=== PATIENT | female | born 1985 | race Caucasian/White ===

== ENCOUNTER 2018-05-12 03:54 | Inpatient (IN) | payer OTHER ==
[2018-05-12] MEDS ORDERED: BUTORPHANOL 1 MG/ML INJ IV PRN (04:54)
[2018-05-12] MEDS ORDERED: MEPERIDINE HCL 25 MG/0.5 ML IV PRN (04:54)
[2018-05-12] MEDS ORDERED: METHYLERGONOVINE 0.2MG/ML AMP IM PRN (04:54)
[2018-05-12] MEDS ORDERED: MIDAZOLAM HCL 2 MG/2 ML INJ IV PRN (04:54)
[2018-05-12] MEDS ORDERED: CARBOPROST TROME 250 MCG/ML IM PRN (04:54)
[2018-05-12] MEDS ORDERED: Ringers Lactate 1,000 ML IV PRN (04:54)
[2018-05-12] MEDS ORDERED: PROMETHAZINE 25 MG/ML VIAL IM PRN (04:54)
[2018-05-12] MEDS ORDERED: Ringers Lactate 1,000 ML IV SCH (05:00)
[2018-05-12] MEDS ORDERED: OXYTOCIN/LR 20 UNIT/1,000 ML BAG IV SCH ×2 (05:30→10:00)
[2018-05-12 05:34] LABS: RPR Titer ND
[2018-05-12 05:40] LABS: Urine Appearance TURBID; Urine Bilirubin NEGATIVE (NEG); Urine Blood NEGATIVE (NEG); Urine Color YELLOW; Urine Glucose NEGATIVE (NEG); Urine Protein 2+ (NEG); Urine Specific Gravity 1.015 (1.005-1.030); Urine Urobilinogen 0.2 mg/dL (0.2-1.0); Urine pH 6.5 (5.0-7.0)
[2018-05-12 05:47] LABS: Absolute Lymphocytes (CBC) 2.4 K/uL (0.7-4.9); Absolute Neutrophil 7.2 K/uL (1.8-8.0); Basophils % 0.2 % (0-1.3); Eosinophils % 0.8 % (0-4.4); Hematocrit 34.3 % (36.0-45.0); Lymphocytes % 22.1 % (15.3-44.8); MCH 28.2 pg (27.0-35.0); MCV 83.6 fL (80-100); MPV 9.8 fL (7.6-11.3); Monocytes % 9.5 % (3.3-12.3)
[2018-05-12 05:55] VITALS: BMI 39.4
[2018-05-12 06:00] LABS: Urine Microscopic Reflex ORDER UMIC
[2018-05-12 06:02] LABS: Urine Bacteria LOADED /HPF (<20); Urine Culture Reflex Order REFLEXED; Urine RBC NONE SEEN /HPF (NONE SEEN)
--- NOTE | 2018-05-12 08:16 | PREOPHP ---
Date of Admission: 05/12/2018 The patient is a 32-year-old, 2, para 1, 40 weeks 3 days, 3 cm, 50% effaced, vertex, well cuco lied -1 station, rosemary regularly. FHTs normal, reactive. Rupture of membranes, clear fluid. Beta strep negative. The patient has mildly elevated blood pressures and +1 pretibial edema. She arreguin d protein on the clean-catch urine, so we will get a Speci-Cath. If it shows protein, we may end up having to start magnesium sulfate. She did not have preeclampsia with the first , so this i s a little unusual, but we will follow clinically and decide whether to institute magnesium sulfate. Full discussion with the patient and family. Anticipate delivery sometime later today. MAGGIE/RENAE Voice ID: [id number]
[2018-05-12 08:17] LABS: Urine Appearance CLEAR; Urine Bilirubin NEGATIVE (NEG); Urine Blood NEGATIVE (NEG); Urine Color YELLOW; Urine Glucose NEGATIVE (NEG); Urine Protein 1+ (NEG); Urine Urobilinogen 0.2 mg/dL (0.2-1.0); Urine pH 6.5 (5.0-7.0)
[2018-05-12 08:24] LABS: Urine Bacteria <20 /HPF (<20); Urine Culture Reflex Order NOT NEEDED; Urine RBC <5 /HPF (NONE SEEN)
[2018-05-12] MEDS ORDERED: LIDOCAINE 2% INJ, 20 mL 20 ML ONE (09:16)
[2018-05-12] MEDS ORDERED: MAGNESIUM SULF/STERILE WATER 1,000 ML IV ONE (09:18)
[2018-05-12 09:31] LABS: Urine Blood NEGATIVE (NEG); Urine Glucose NEGATIVE (NEG); Urine Protein 1+ (NEG)
--- NOTE | 2018-05-12 09:43 | PN ---
The patient is now 4 cm. According to the nurses exam, she is being hydrated and we will start her e pidural at her request. She also has +1 protein on , pretibial edema, and slightly elevate d blood pressures. It looks like she has mild preeclampsia. Once she gets comfortable with her epid ural, we will start her on magnesium sulfate. Full discussion with patient and . MAGGIE/RENAE Voice ID: [id number] Report ID: [id number]
[2018-05-12] MEDS ORDERED: BISACODYL 10 MG RECTAL SUPP RECT PRN (09:53)
[2018-05-12] MEDS ORDERED: Oxycodone HCl/Acetaminophen 1 TAB TAB PO PRN ×2 (09:53)
[2018-05-12] MEDS ORDERED: DIPHENHYDRAMINE 25 MG TAB/CAP PO PRN (09:53)
[2018-05-12] MEDS ORDERED: ACETAMINOPHEN 500 MG TAB PO PRN (09:53)
[2018-05-12] MEDS ORDERED: DOCUSATE NA/SENNA CONC 1 TAB PO PRN (09:53)
[2018-05-12] MEDS: PHENOBARBITAL 32.4 MG TABLET PO SCH ×2 (11:05→19:11)
[2018-05-12] MEDS ORDERED: PHENOBARBITAL 32.4 MG TABLET PO ONE (11:09)
--- NOTE | 2018-05-12 13:28 | OP ---
Surgeon: Adiel Young MD Indications: A 32-year-old, 2, para 1, 40 weeks 3 days, admitted for labor induction, 2.5 cm , 50% effaced, vertex, well applied at -1 station on admission. Rupture of membranes, clear fluid. Received Stadol IV, Phenergan IM at 4 cm, requested epidural but went rapidly to complete. Spontaneo us vaginal delivery of an estimated 7 pounds 2 oz female, Apgars 9 and 9. Small first-degree lacerat ion repaired with 2-0 chromic under local infiltration. Schultze delivery of placenta, which was ins pected and noted to be intact and normal. Less than 350 cc blood loss. The patient is noted to have mildly elevated blood pressures. Proteinuria +1 and pretibial edema. Normal reflexes. No MAT PUNCHER symp toms. She was given 4 g loading dose of magnesium sulfate but for maintenance dose could be establis hed delivered. At this point, blood pressures are very minimally elevated. We will start her on phe nobarbital 60 mg p.o. 3 times a day for the next 2 days or so as a precautionary measure. Final Diagnoses: 1.Term intrauterine . 2.Vaginal delivery. 3.Possible mild pre-eclampsia. MAGGIE/RIANAL Voice ID: [id number] Report ID: [id number]
[2018-05-12] MEDS: IBUPROFEN 200 MG TAB PO PRN (16:20)
[2018-05-12 21:37] LABS: RPR (Rapid Plasma Reagin) NON-REACT (NON-REACT)
[2018-05-13] MEDS: PHENOBARBITAL 32.4 MG TABLET PO SCH ×2 (04:10→12:00)
[2018-05-13] MEDS: IBUPROFEN 200 MG TAB PO PRN (12:00)
[2018-05-13 12:06] VITALS: BP 142/73; TEMP 97.7
--- NOTE | 2018-05-15 08:46 | DS ---
Date of Discharge: 05/13/2018 Hospital Course: A 32-year-old, 2, para 1, at 40 weeks 3 days for labor induction. After ac hieving 4 cm, the patient went very rapidly to complete. She had had Stadol 1 mg IV, Phenergan 25 mg IM prior to that. Spontaneous vaginal delivery of 7 pounds 9 ounce female. Apgars 9 and 9. Small first-degree laceration repaired with 2-0 chromic local infiltration. Schultze delivery of the place nta, inspected and noted be heavily calcified, but otherwise normal and intact. Estimated blood loss 350 cc or less. Rh positive, immune to Rubella. Negative beta strep screen. afebrile, ambulating, voiding. Lochia is normal. The patient had mildly elevated blood pressures during the l abor, protein in the urine +1 and pretibial edema, but normal reflexes. Since delivery, her blood pr essures returned completely normal. I do not think that the patient has any significant risk of seiz ures; therefore, we will not send her home on phenobarbital. She has been taking Motrin, probably we will continue that, but I have given her prescription for tramadol in case she needs something stron [place]. Final Diagnoses: Term intrauterine 40 weeks 3 days, vaginal delivery, mild pre-eclampsia, now resolving. MAGGIE/RENAE Voice ID: [id number] Report ID: [id number]
[2018-05-17 04:07] LABS: HBsAG Nonreactive (Nonreactive)
== END 2018-05-13 15:00 | disposition home or self-care (01) | DRG 775 ==
LOC: 2ND-WC 03:54 → EDSTATUS 20:08
PROVIDERS: ADMIT Specialist; ATTEND Specialist
PROC: 10E0XZZ Delivery of Products of Conception, External Approach (ICD-10-PCS; principal; 2018-05-12)
PROC: 0HQ9XZZ Repair Perineum Skin, External Approach (ICD-10-PCS; 2018-05-12)
PROC: 10907ZC Drainage of Amniotic Fluid, Therapeutic from Products of Conception, Via Natural or Artificial Opening (ICD-10-PCS; 2018-05-12)
PROC: 3E033VJ Introduction of Other Hormone into Peripheral Vein, Percutaneous Approach (ICD-10-PCS; 2018-05-12)
DX: O14.04 Mild to moderate pre-eclampsia, complicating childbirth (principal); O70.0 First degree perineal laceration during delivery; Z3A.40 40 weeks gestation of pregnancy; Z37.0 Single live birth
CPT/HCPCS: 36415; 81001; 81003; 81015; 85025; 86592; 86901; 87086; 87088; 87340; J0595; J2175; J2550; J2590; J3475